=== PATIENT | male | born 1970 | race Caucasian/White ===

== ENCOUNTER 2018-07-18 07:51 | Outpatient (CLI) | payer BC ==
[2018-07-18] VITALS (17 sets, daily range): BP systolic 142–171; BP diastolic 79–106
== END 2018-07-18 23:59 | disposition home or self-care (01) ==
LOC: CARD DIAG 07:51
PROVIDERS: ATTEND Internal Medicine Interventional Cardiology
DX: R55 Syncope and collapse (principal)
CPT/HCPCS: 93660

== ENCOUNTER 2018-08-10 03:47 | Outpatient (CLI) | payer SELFPAY ==
[2018-08-10 10:27] LABS: HEMOGLOBIN A1C 5.9 % (4.5-6.2)
[2018-08-10 10:28] LABS: CHOL/HDL RATIO 7.32 (0.00-4.99)
== END 2018-08-10 23:59 | disposition home or self-care (01) ==
LOC: HW HEART 03:47
DX: Z13.6 Encounter for screening for cardiovascular disorders (principal)
CPT/HCPCS: 36415